=== PATIENT | male | born 1935 | race Caucasian/White ===

== ENCOUNTER → 2017-07-14 | Outpatient (CLI) | payer MEDICARE | END | disposition home or self-care (01) | LOC: CFH 08:22 | PROVIDERS: ATTEND Internal Medicine Cardiovascular Disease | DX: I08.0 Rheumatic disorders of both mitral and aortic valves (principal); I10 Essential (primary) hypertension; E78.5 Hyperlipidemia, unspecified; I25.10 Atherosclerotic heart disease of native coronary artery without angina pectoris | CPT/HCPCS: 93306 ==

== ENCOUNTER 2017-10-28 09:58 | Inpatient (IN) | payer MEDICARE ==
[~2017-10-28] VITALS: Ht 175.3 cm; Wt 70.5 kg
[~2017-10-28 09:58] MED LIST: ALLO100T30 PO; MIRA25TA PO; OMEG-76 PO; SERT25TA3 PO; TAMS-11 PO
[2017-10-28 10:31] LABS: BASOPHILS # (AUTO) 0.05 x10^3/uL (0-0.1); BASOPHILS % (AUTO) 0 % (0-1); EOSINOPHILS # (AUTO) 0.04 x10^3/uL (0-0.4); EOSINOPHILS % (AUTO) 0 % (1-7); LYMPHOCYTES # (AUTO) 0.82 x10^3/uL (1-3.4); LYMPHOCYTES % (AUTO) 6 % (22-44); MD NO; MEAN CORPUSCULAR HEMOGLOBIN 28.7 pg (27.5-34.5); MEAN CORPUSCULAR HGB CONC 33.7 g/dL (33.2-36.2); MEAN CORPUSCULAR VOLUME 85.1 fL (81-97); MEAN PLATELET VOLUME 8.2 fL (7.4-10.4); MONOCYTES # (AUTO) 1.14 x10^3/uL (0.2-0.8); MONOCYTES % (AUTO) 8 % (2-9); NEUTROPHILS # (AUTO) 12.12 x10^3/uL (1.8-6.8); NEUTROPHILS % (AUTO) 86 % (42-75); PLATELET COUNT 362 x10^3/uL (130-400); RED BLOOD COUNT 3.32 x10^6/uL (4.38-5.82); RED CELL DISTRIBUTION WIDTH 16.9 % (9.4-14.8)
[2017-10-28 10:36] LABS: INTERNATIONAL NORMALIZED RATIO 1.16 (0.93-1.1)
[2017-10-28 10:41] LABS: ALANINE AMINOTRANSFERASE 16 U/L (12-78); ALBUMIN 2.3 g/dL (3.4-5.0); ANION GAP 8 mmol/L (5-15); CALCIUM 9.9 mg/dL (8.5-10.1); CHLORIDE 106 mmol/L (98-107); CREATININE 2.07 mg/dL (0.7-1.3)
[2017-10-28 10:45] LABS: ALKALINE PHOSPHATASE 54 U/L (45-117); BILIRUBIN,TOTAL 0.4 mg/dL (0.2-1.0); TOTAL PROTEIN 7.3 g/dL (6.4-8.2)
[2017-10-28 12:21] LABS: CULTURE INDICATED? YES; MICROSCOPIC INDICATED
[2017-10-28] MEDS ORDERED: CEFTRIAXONE PMX 1GM/50ML 50 ML IV ONE (13:30)
[2017-10-28] MEDS ORDERED: SODIUM CHLORIDE 0.9%, 500ML IVBOLUS ONE (13:30)
[2017-10-28] MEDS ORDERED: CEFTRIAXONE PMX 1GM/50ML 50 ML ONE (13:43)
[2017-10-28 15:00] VITALS: BP 126/74
[2017-10-28] MEDS ORDERED: ONDANSETRON 2MG/ML, 2ML IVPush PRN (15:00)
[2017-10-28] MEDS ORDERED: HYDROmorphone 2 MG/ML, 1ML IVPush PRN (15:00)
[2017-10-28] MEDS ORDERED: BISACODYL 10 MG SUPP PR PRN (15:00)
[2017-10-28] MEDS ORDERED: DOCUSATE 100 MG CAPSULE PO PRN (15:00)
[2017-10-28] MEDS ORDERED: ACETAMINOPHEN 325 MG TABLET PO PRN (15:00)
[2017-10-28] MEDS ORDERED: hydrALAzine 20 MG/ML, 1ML IVPush PRN (15:00)
[2017-10-28] MEDS ORDERED: POLYETHYLENE GLYCOL 17 GM PACKET PO PRN (15:00)
[2017-10-28 15:30] LABS: CREATININE,URINE RANDOM 59.4 mg/dL
[2017-10-28] MEDS: SODIUM CHLORIDE 0.9% 1,000 ML IV SCH (18:33)
[2017-10-28] MEDS: HEPARIN 5,000 UNITS/ML, 1ML SQ SCH (18:33)
[2017-10-28 19:42] VITALS: BP 120/74
[2017-10-28] MEDS: OXYcodone IR 5MG TABLET PO PRN (19:59)
[2017-10-29 01:13] VITALS: BP 133/74
[2017-10-29] MEDS: SODIUM CHLORIDE 0.9% 1,000 ML IV SCH ×3 (02:31→18:06)
[2017-10-29] MEDS: HEPARIN 5,000 UNITS/ML, 1ML SQ SCH ×3 (02:34→20:13)
[2017-10-29] MEDS: OXYcodone IR 5MG TABLET PO PRN ×2 (02:34→18:05)
[2017-10-29] MEDS ORDERED: MEGE625O3 PO (03:49)
[2017-10-29 04:56] LABS: BASOPHILS # (AUTO) 0.02 x10^3/uL (0-0.1); BASOPHILS % (AUTO) 0 % (0-1); EOSINOPHILS # (AUTO) 0.33 x10^3/uL (0-0.4); EOSINOPHILS % (AUTO) 3 % (1-7); LYMPHOCYTES # (AUTO) 0.96 x10^3/uL (1-3.4); LYMPHOCYTES % (AUTO) 8 % (22-44); MD NO; MEAN CORPUSCULAR HEMOGLOBIN 28.3 pg (27.5-34.5); MEAN CORPUSCULAR HGB CONC 33.4 g/dL (33.2-36.2); MEAN CORPUSCULAR VOLUME 84.6 fL (81-97); MEAN PLATELET VOLUME 8.1 fL (7.4-10.4); MONOCYTES # (AUTO) 1.16 x10^3/uL (0.2-0.8); MONOCYTES % (AUTO) 9 % (2-9); NEUTROPHILS # (AUTO) 9.81 x10^3/uL (1.8-6.8); NEUTROPHILS % (AUTO) 80 % (42-75); PLATELET COUNT 325 x10^3/uL (130-400); RED CELL DISTRIBUTION WIDTH 16.6 % (9.4-14.8)
[2017-10-29 05:07] LABS: ALBUMIN 2.2 g/dL (3.4-5.0); ANION GAP 8 mmol/L (5-15); CALCIUM 10.3 mg/dL (8.5-10.1); CHLORIDE 108 mmol/L (98-107); CREATININE 1.87 mg/dL (0.7-1.3)
[2017-10-29 05:10] LABS: ALANINE AMINOTRANSFERASE 28 U/L (12-78); ALKALINE PHOSPHATASE 52 U/L (45-117); BILIRUBIN,TOTAL 0.3 mg/dL (0.2-1.0); TOTAL PROTEIN 6.9 g/dL (6.4-8.2)
[2017-10-29 06:30] VITALS: BP_SYST 70
[2017-10-29] MEDS: ALLOPURINOL 100 MG TABLET PO SCH (08:42)
[2017-10-29] MEDS: TAMSULOSIN 0.4 MG CAP.ER.24H PO SCH (08:42)
[2017-10-29] MEDS: EPA PO SCH (08:45)
[2017-10-29] MEDS: (Mirabegron** (Myrbetriq**) 25 MG) PO SCH (08:45)
[2017-10-29] MEDS: FISH OIL PO SCH (08:45)
[2017-10-29] MEDS: [UNRECOGNIZED DRUG - OTHER] PO SCH (08:45)
[2017-10-29] MEDS: D3 PO SCH (08:45)
[2017-10-29] MEDS: OMEGA PO SCH (08:45)
[2017-10-29] MEDS: DHA PO SCH (08:45)
[2017-10-29] MEDS ORDERED: SERTRALINE 50MG TABLET PO SCH (09:00)
[2017-10-29] MEDS: LINEZOLID PMX 600MG/300ML 300 ML IV SCH ×2 (11:34→22:53)
[2017-10-29] MEDS: CEFTRIAXONE PMX 1GM/50ML 50 ML IV SCH (14:48)
[2017-10-29 14:49] VITALS: BP 115/63
[2017-10-29 19:49] VITALS: BP 114/70
[2017-10-30 01:46] VITALS: BP 128/75
[2017-10-30] MEDS: HEPARIN 5,000 UNITS/ML, 1ML SQ SCH ×3 (04:10→20:48)
[2017-10-30 07:45] VITALS: BP 120/72
[2017-10-30] MEDS: ALLOPURINOL 100 MG TABLET PO SCH (08:52)
[2017-10-30] MEDS: TAMSULOSIN 0.4 MG CAP.ER.24H PO SCH (08:52)
[2017-10-30] MEDS: MEGESTROL ORAL.SUSP 40 MG/ML PO SCH (08:53)
[2017-10-30] MEDS: (Mirabegron** (Myrbetriq**) 25 MG) PO SCH (08:54)
[2017-10-30] MEDS: OMEGA PO SCH (08:54)
[2017-10-30] MEDS: [UNRECOGNIZED DRUG - OTHER] PO SCH (08:54)
[2017-10-30] MEDS: FISH OIL PO SCH (08:54)
[2017-10-30] MEDS: D3 PO SCH (08:54)
[2017-10-30] MEDS: DHA PO SCH (08:54)
[2017-10-30] MEDS: EPA PO SCH (08:54)
[2017-10-30] MEDS: LINEZOLID PMX 600MG/300ML 300 ML IV SCH (11:00)
[2017-10-30] MEDS: OXYcodone IR 5MG TABLET PO PRN ×2 (12:10→17:35)
[2017-10-30 13:07] VITALS: BP 108/67
[2017-10-30] MEDS: CEFTRIAXONE PMX 1GM/50ML 50 ML IV SCH (15:29)
[2017-10-30] MEDS: SODIUM CHLORIDE 0.9% 1,000 ML IV SCH ×2 (17:20→21:52)
[2017-10-30] MEDS: DRONABINOL 5 MG CAPSULE PO SCH ×2 (17:35→20:48)
[2017-10-30 19:04] VITALS: BP 113/70
[2017-10-31 03:45] VITALS: BP 116/70
[2017-10-31] MEDS: HEPARIN 5,000 UNITS/ML, 1ML SQ SCH ×3 (04:25→21:24)
[2017-10-31 04:27] LABS: BASOPHILS # (AUTO) 0.03 x10^3/uL (0-0.1); BASOPHILS % (AUTO) 0 % (0-1); EOSINOPHILS # (AUTO) 0.61 x10^3/uL (0-0.4); EOSINOPHILS % (AUTO) 5 % (1-7); LYMPHOCYTES # (AUTO) 1.07 x10^3/uL (1-3.4); LYMPHOCYTES % (AUTO) 9 % (22-44); MD NO; MEAN CORPUSCULAR HEMOGLOBIN 28.5 pg (27.5-34.5); MEAN CORPUSCULAR HGB CONC 33.2 g/dL (33.2-36.2); MEAN CORPUSCULAR VOLUME 85.7 fL (81-97); MEAN PLATELET VOLUME 8.4 fL (7.4-10.4); MONOCYTES # (AUTO) 0.89 x10^3/uL (0.2-0.8); MONOCYTES % (AUTO) 8 % (2-9); NEUTROPHILS # (AUTO) 9.05 x10^3/uL (1.8-6.8); NEUTROPHILS % (AUTO) 78 % (42-75); PLATELET COUNT 297 x10^3/uL (130-400); RED BLOOD COUNT 3.21 x10^6/uL (4.38-5.82); RED CELL DISTRIBUTION WIDTH 17.1 % (9.4-14.8)
[2017-10-31 04:35] LABS: ALANINE AMINOTRANSFERASE 55 U/L (12-78); ALBUMIN 1.8 g/dL (3.4-5.0); ANION GAP 6 mmol/L (5-15); CALCIUM 10.1 mg/dL (8.5-10.1); CHLORIDE 112 mmol/L (98-107); CREATININE 1.65 mg/dL (0.7-1.3)
[2017-10-31 04:37] LABS: ALKALINE PHOSPHATASE 61 U/L (45-117); BILIRUBIN,TOTAL 0.3 mg/dL (0.2-1.0); TOTAL PROTEIN 6.5 g/dL (6.4-8.2)
[2017-10-31] MEDS: OMEGA PO SCH (07:58)
[2017-10-31] MEDS: EPA PO SCH (07:58)
[2017-10-31] MEDS: DHA PO SCH (07:58)
[2017-10-31] MEDS: [UNRECOGNIZED DRUG - OTHER] PO SCH (07:58)
[2017-10-31] MEDS: D3 PO SCH (07:58)
[2017-10-31] MEDS: FISH OIL PO SCH (07:58)
[2017-10-31] MEDS: (Mirabegron** (Myrbetriq**) 25 MG) PO SCH (08:13)
[2017-10-31] MEDS: ALLOPURINOL 100 MG TABLET PO SCH (08:14)
[2017-10-31] MEDS: TAMSULOSIN 0.4 MG CAP.ER.24H PO SCH (08:14)
[2017-10-31] MEDS: DRONABINOL 5 MG CAPSULE PO SCH ×3 (08:14→22:57)
[2017-10-31 08:17] VITALS: BP 122/72
[2017-10-31] MEDS ORDERED: DRON5CAP15 PO (08:47)
[2017-10-31] MEDS ORDERED: POLY17PO5 PO (08:47)
[2017-10-31] MEDS: (Mirabegron** (Myrbetriq**) 50 MG) HOMEMEDPO SCH (10:29)
[2017-10-31] MEDS: MEGESTROL ORAL.SUSP 40 MG/ML PO SCH (10:37)
[2017-10-31] MEDS: CEFTRIAXONE PMX 1GM/50ML 50 ML IV SCH (10:37)
[2017-10-31] MEDS: SODIUM CHLORIDE 0.9% 1,000 ML IV SCH ×2 (12:28→15:42)
[2017-10-31 13:12] VITALS: BP 109/63
[2017-10-31 18:48] VITALS: BP 146/78
[2017-10-31] MEDS: OXYcodone IR 5MG TABLET PO PRN (21:24)
[2017-11-01 01:17] VITALS: BP 131/70
[2017-11-01] MEDS: HEPARIN 5,000 UNITS/ML, 1ML SQ SCH ×2 (05:55→14:36)
[2017-11-01] MEDS: SODIUM CHLORIDE 0.9% 1,000 ML IV SCH ×2 (05:55→14:36)
[2017-11-01 06:42] VITALS: BP 138/77
[2017-11-01] MEDS ORDERED: GADOBUTROL 10 MMOL/10 ML PFS ONE (07:23)
[2017-11-01] MEDS: MEGESTROL ORAL.SUSP 40 MG/ML PO SCH (09:00)
[2017-11-01] MEDS: OMEGA PO SCH (09:39)
[2017-11-01] MEDS: DRONABINOL 5 MG CAPSULE PO SCH (09:39)
[2017-11-01] MEDS: EPA PO SCH (09:39)
[2017-11-01] MEDS: [UNRECOGNIZED DRUG - OTHER] PO SCH (09:39)
[2017-11-01] MEDS: DHA PO SCH (09:39)
[2017-11-01] MEDS: D3 PO SCH (09:39)
[2017-11-01] MEDS: FISH OIL PO SCH (09:39)
[2017-11-01] MEDS: ALLOPURINOL 100 MG TABLET PO SCH (09:44)
[2017-11-01] MEDS: CEFTRIAXONE PMX 1GM/50ML 50 ML IV SCH (09:44)
[2017-11-01] MEDS: (Mirabegron** (Myrbetriq**) 50 MG) HOMEMEDPO SCH (09:45)
[2017-11-01] MEDS: TAMSULOSIN 0.4 MG CAP.ER.24H PO SCH (09:45)
[2017-11-01 13:05] VITALS: BP 154/85
== END 2017-11-01 16:59 | DRG 871 ==
LOC: ED 10:50 → EDIP 13:55 → 3NW 14:58
PROVIDERS: ADMIT Internal Medicine; ATTEND Internal Medicine
DX: A41.9 Sepsis, unspecified organism (principal); E43 Unspecified severe protein-calorie malnutrition; N17.9 Acute kidney failure, unspecified; E87.0 Hyperosmolality and hypernatremia; E87.2 Acidosis; D49.4 Neoplasm of unspecified behavior of bladder; N13.30 Unspecified hydronephrosis; D64.9 Anemia, unspecified; E87.1 Hypo-osmolality and hyponatremia; N39.0 Urinary tract infection, site not specified; I45.10 Unspecified right bundle-branch block; W18.30XA Fall on same level, unspecified, initial encounter; Z68.23 Body mass index [BMI] 23.0-23.9, adult; F32.9 Major depressive disorder, single episode, unspecified; G89.29 Other chronic pain; M10.9 Gout, unspecified; N18.2 Chronic kidney disease, stage 2 (mild); Y92.009 Unspecified place in unspecified non-institutional (private) residence as the place of occurrence of the external cause; Z85.46 Personal history of malignant neoplasm of prostate; Z85.51 Personal history of malignant neoplasm of bladder; Z87.891 Personal history of nicotine dependence; Z92.21 Personal history of antineoplastic chemotherapy; Z93.6 Other artificial openings of urinary tract status
CPT/HCPCS: 36415; 70450; 70553; 71045; 76770; 80053; 81001; 82436; 82570; 83605; 83690; 83735; 83880; 84100; 84133; 84300; 85025; 85610; 87040; 87077; 87086; 93005; 99285; A9585; J0696; J1644; J2020; Q0167; J7030; J7040